=== PATIENT | female | born 1990 | race Caucasian/White ===

== ENCOUNTER 2016-07-28 15:35 | Emergency (ER) | payer MEDICAID, OTHER ==
--- NOTE | 2016-07-28 16:26 | ED.PDOC ---
History of Present Illness - General Chief Complaint: Abdominal Pain Stated Complaint: Lower right abdominal pain x one week Time Seen by Provider: 07/28/16 15:50 Source: patient, RN notes reviewed, Vital Signs reviewed Exam Limitations: no limitations - History of Present Illness Initial Comments: Patient is a 26 y/o female who was encouraged to come to the ED by the urgent care clinic today. She has had lower abdominal pain, R>L, for a week. The pain has increased, and she has had severe nausea over the past two days. The pain is a crampy pain and severe. She also has low back pain on the right. She denies any fever, does say she has had chills for the past two days. Her LMP was 07/20/2016. She is on OCPs. Timing/Duration: 1 week, getting worse Severity: severe Improving Factors: nothing Worsening Factors: eating Associated Symptoms: headaches, other - nausea, chills Allergies/Adverse Reactions: Allergies NO KNOWN ALLERGY Allergy (Unverified 11/24/14 12:09) Home Medications: Ambulatory Orders Ciprofloxacin [Cipro] 500 mg PO BID #14 tab 07/28/16 Ondansetron [Zofran Odt] 4 mg PO Q8H PRN #10 tab 07/28/16 Tramadol HCl 50 mg PO Q6H PRN #15 tab 07/28/16 metroNIDAZOLE [Flagyl] 500 mg PO TID #21 tab 07/28/16 Review of Systems - Review of Systems Constitutional: States: chills EENTM: States: no symptoms reported Respiratory: States: no symptoms reported Cardiology: States: no symptoms reported Gastrointestinal/Abdominal: States: abdominal pain, diarrhea, nausea Genitourinary: States: no symptoms reported Musculoskeletal: States: muscle pain Skin: States: no symptoms reported Neurological: States: headache Endocrine: States: no symptoms reported Hematologic/Lymphatic: States: no symptoms reported All other Systems: Reviewed and Negative Past Medical History (General) - Patient Medical History Hx Stroke: No Hx of COPD: No Hx Congestive Heart Failure: No Hx Hypertension: No Hx Diabetes: No Surgical History: other - Vaccination History Hx Influenza Vaccination: Yes Hx Pneumococcal Vaccination: No - Social History Hx Tobacco Use: No Hx Alcohol Use: Yes - Two beers a week - Female History Patient is a Female of Child Bearing Age (10 -59 yrs old): Yes - Dilation and Curettage - December,. Patient is on oral Control Hx Last Menstrual Period: 07/14/16 - Triage Comment ED Triage Comment: Patient states, "I took a test this morning and it was negative" Family Medical History - Family History Mother Living Status: Still Living Physical Exam - Physical Exam General Appearance: Alert, Comfortable, Well Groomed, Other - Mild distress Respiratory: lungs clear, normal breath sounds, no respiratory distress, no accessory muscle use Cardiovascular/Chest: regular rate, rhythm, no edema, no gallop, no murmur Gastrointestinal/Abdominal: abnormal bowel sounds - decreased, guarding, tenderness - RLQ and mid lower abdomen. Back Exam: normal inspection, no CVA tenderness, no vertebral tenderness Extremity: normal range of motion, non-tender, normal inspection Neurologic: alert, normal mood/affect, oriented x 3 Skin Exam: normal color, warm/dry Progress - Progress Progress: 07/28/16 18:20 I discussed pelvic exam and CT scan with Patient and her . Patient declined both. 07/28/16 18:21 - Results/Orders Results/Orders: 07/28/16 15:48 Temperature 98.6 F Pulse Rate [ 78 Apical] Respiratory 20 Rate Blood Pressure 125/82 [Left Arm] O2 Sat by Pulse 100 Oximetry 07/28/16 18:20 Ondansetron Inj [Zofran Inj] 4 mg IV ONCE ONE Laboratory Results WBC 3.6 K/mm3 (4.8-10.8) L 07/28/16 16:05 RBC 4.22 M/mm3 (4.20-5.40) 07/28/16 16:05 Hgb 12.6 gm/dL (12.0-16.0) 07/28/16 16:05 Hct 37.2 % (36.0-47.0) 07/28/16 16:05 MCV 88.1 fl (81.0-99.0) 07/28/16 16:05 MCH 29.9 pg (27.0-31.0) 07/28/16 16:05 MCHC 33.9 g/dL (33.0-37.0) 07/28/16 16:05 RDW 14.1 % (11.5-14.5) 07/28/16 16:05 Plt Count 104 K/mm3 (130-400) L 07/28/16 16:05 MPV 10.4 fl (7.40-10.4) 07/28/16 16:05 Absolute Neuts (auto) 2.20 K/uL (1.8-6.8) 07/28/16 16:05 Absolute Lymphs (auto) 1.10 K/uL (1.0-3.4) 07/28/16 16:05 Absolute Monos (auto) 0.30 K/uL (0.2-0.8) 07/28/16 16:05 Absolute Eos (auto) 0.00 K/uL (0.0-0.4) 07/28/16 16:05 Absolute Basos (auto) 0.00 K/uL (0.0-0.1) 07/28/16 16:05 Neutrophils % 61.6 % (42.0-78.0) 07/28/16 16:05 Lymphocytes % 29.6 % (20.0-50.0) 07/28/16 16:05 Monocytes % 8.3 % (2.0-9.0) 07/28/16 16:05 Eosinophils % 0.4 % (1.0-5.0) L 07/28/16 16:05 Basophils % 0.1 % (0.0-2.0) 07/28/16 16:05 Sodium 135 mmol/L (135-145) 07/28/16 16:05 Potassium 3.6 mmol/L (3.6-5.0) 07/28/16 16:05 Chloride 102 mmol/L (101-111) 07/28/16 16:05 Carbon Dioxide 27 mmol/L (21-31) 07/28/16 16:05 Anion Gap 9.6 (12-18) L 07/28/16 16:05 BUN 13 mg/dL (7-18) 07/28/16 16:05 Creatinine 0.79 mg/dL (0.6-1.3) 07/28/16 16:05 BUN/Creatinine Ratio 16.5 (10-20) 07/28/16 16:05 Random Glucose 110 mg/dL (70-105) H 07/28/16 16:05 Serum Osmolality 270.9 mOsm/L (275-295) L 07/28/16 16:05 Calcium 8.9 mg/dL (8.4-10.2) 07/28/16 16:05 Total Bilirubin 1.0 mg/dL (0.2-1.0) 07/28/16 16:05 AST 20 IU/L (10-42) 07/28/16 16:05 ALT 10 IU/L (10-60) 07/28/16 16:05 Alkaline Phosphatase 58 IU/L (42-121) 07/28/16 16:05 Serum Total Protein 7.6 gm/dL (6.4-8.2) 07/28/16 16:05 Albumin 4.2 g/dl (3.2-5.5) 07/28/16 16:05 Globulin 3.4 gm/dL (2.3-3.5) 07/28/16 16:05 Albumin/Globulin Ratio 1.2 (1.1-1.9) 07/28/16 16:05 Serum HCG, Qual Negative 07/28/16 16:05 Urine Color Yellow (Yellow) 07/28/16 16:21 Urine Appearance Clear (Clear) 07/28/16 16:21 Urine pH 7.5 (4.5-7.8) 07/28/16 16:21 Ur Specific [place] 1.020 (1.005-1.030) 07/28/16 16:21 Urine Protein Negative mg/dL 07/28/16 16:21 Urine Glucose (UA) Negative mg/dL (Negative) 07/28/16 16:21 Urine Ketones Trace mg/dL (NEGATIVE) 07/28/16 16:21 Urine Blood Negative (Negative) 07/28/16 16:21 Urine Nitrite Negative 07/28/16 16:21 Urine Bilirubin Negative (NEGATIVE) 07/28/16 16:21 Urine Urobilinogen 2.0 mg/dL (0.2-1.0) H 07/28/16 16:21 Ur Leukocyte Esterase Negative (Negative) 07/28/16 16:21 Urine RBC 0 /hpf 07/28/16 16:21 Urine WBC 0 /hpf 07/28/16 16:21 Ur Epithelial Cells 0 /hpf 07/28/16 16:21 Urine Bacteria 0 07/28/16 16:21 Departure - Departure Clinical Impression: Abdominal pain Qualifiers: Abdominal location: right lower quadrant Qualifier Code: (R10.31) Right lower quadrant pain Leukopenia Qualifiers: Leukopenia type: unspecified Qualifier Code: (D72.819) Decreased white blood cell count, unspecified Time of Disposition: 18:22 Disposition: Discharge to Home or Self Care Condition: Fair Departure Forms: ED Discharge - Pt. Copy, Patient Portal Self Enrollment Instructions: DI for Abdominal Pain-Adult Diet: bland diet Referrals: Bony Wadsworth MD [Primary Care Provider] - 1-2 Weeks Prescriptions: Ciprofloxacin [Cipro] 500 mg PO BID #14 tab metroNIDAZOLE [Flagyl] 500 mg PO TID #21 tab Tramadol HCl 50 mg PO Q6H PRN #15 tab PRN Reason: Pain Ondansetron [Zofran Odt] 4 mg PO Q8H PRN #10 tab PRN Reason: Nausea/Vomiting Home Medications: Ambulatory Orders Ciprofloxacin [Cipro] 500 mg PO BID #14 tab 07/28/16 Ondansetron [Zofran Odt] 4 mg PO Q8H PRN #10 tab 07/28/16 Tramadol HCl 50 mg PO Q6H PRN #15 tab 07/28/16 metroNIDAZOLE [Flagyl] 500 mg PO TID #21 tab 07/28/16 Additional Instructions: Follow up in ED immediately for any fever, intractable vomiting, or worsening of abdominal pain.
[2016-07-28] MEDS ORDERED: ONDANSETRON INJ 4 MG/2 ML VIAL IV ONE (18:20)
[2016-07-28 19:03] VITALS: BP 109/71; TEMP 98.7; O2SAT 97
== END 2016-07-28 19:01 | disposition home or self-care (01) ==
LOC: ER 15:35
DX: R10.31 Right lower quadrant pain (principal); D72.819 Decreased white blood cell count, unspecified
CPT/HCPCS: 36415; 80053; 81001; 84703; 85025; J2405

== ENCOUNTER 2019-05-11 20:45 | Emergency (ER) | payer OTHER ==
[2019-05-11] MEDS ORDERED: SODIUM CHLORIDE 0.9% (FLUSH) 10 ML SYG IV PRN (21:06)
== END 2019-05-11 20:58 | disposition left against medical advice (07) ==
LOC: ER 20:45
DX: O26.851 Spotting complicating pregnancy, first trimester (principal); Z53.21 Procedure and treatment not carried out due to patient leaving prior to being seen by health care provider

== ENCOUNTER → 2019-07-24 | Outpatient (CLI) | payer OTHER ==
--- NOTE | 2019-07-27 10:09 | MRI ---
Study: MRI of the Right Knee. Indication: KNEE PAIN Technique: Multiplanar, multi sequence MRI of the right knee was obtained without intravenous contrast. Comparison: None. Findings: ACL, PCL, MCL, and lateral collateral ligament complex intact. Mild degenerative signal posterior horn and body medial meniscus without tear. Lateral meniscus intact. No high-grade chondral defect medial or lateral knee compartments. Low-grade tendinosis quadriceps tendon insertion and patellar tendon origin. Patella normally located. Tiny effusion. No high-grade chondral defect patellofemoral compartment. No acute fracture. Tiny Lai's cyst. Impression: Mild degenerative signal change medial meniscus without tear. Tiny effusion. Low-grade quadriceps and patellar tendinosis without tear. Electronically signed by: Dane Gonzalez MD 07/27/2019 10:08 AM [facility]
== END ==
LOC: MRI 10:20
PROVIDERS: ATTEND Family Medicine
DX: M23.306 Other meniscus derangements, unspecified meniscus, right knee (principal); M25.461 Effusion, right knee; M76.51 Patellar tendinitis, right knee